=== PATIENT | male | born 2000 | race African-American/Black ===

== ENCOUNTER 2023-11-12 19:40 | Emergency (ER) | payer SELFPAY ==
[2023-11-12 19:46] VITALS: BP 114/48
[2023-11-12 23:41] VITALS: BP 108/68
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
[2023-11-13] VITALS: BP 118/63
[2023-11-13] MEDS: VALIUM 5 MG PO (00:20)
[2023-11-13] MEDS: TORADOL 30 MG IM (00:21)
--- NOTE | 2023-11-13 00:39 | EDRN ---
[place]. Pt states that his entire body hurts. Pt c/o bilateral neck pain, back pain, bilateral buttocks pain and leg pain. Pt has a redness across his upper back and healing scabbed scratches lower back. pt moves arms and legs with c/o pain.
--- NOTE | 2023-11-13 03:02 | ED.GENMED ---
History of Present Illness
General
Chief Complaint: Generalized Pain
Time Seen by Provider: 11/12/23 23:50
Travel History
Have you had any contact with someone who has COVID-19?: No
Do you have any symptoms of coronavirus? Fever > 100 degrees, chills, cough, shortness of breath, sore throat, loss of taste or smell, muscle aches, or headache?: No
Course
Orders/Labs/Results
Orders:
Orders
11/13/23 00:06
CT Cervical Spine W/o Iv Contr Urgent
Comment:
Reason For Exam: trauma
CT Head W/o Iv Contrast Urgent
Comment:
Reason For Exam: trauma pain
CT Lumbar Spine W/o Iv Contras Urgent
Comment:
Reason For Exam: trauma
Diazepam [Valium] 5 mg PO NOW STA
Ketorolac [Toradol] 30 mg IM NOW STA
CR Shoulder, Trauma - Left Urgent
Comment:
Reason For Exam: trauma
Vital Signs
Initial and Last Documented VS:
Initial Vital Signs
Temp Pulse Resp BP Pulse Ox
98.1 F 120 24 114/48 98
11/12/23 19:46 11/12/23 19:46 11/12/23 19:46 11/12/23 19:46 11/12/23 19:46
Last Documented Vital Signs
Temp Pulse Resp BP Pulse Ox
98.1 F 120 24 114/48 98
11/12/23 19:46 11/12/23 19:46 11/12/23 19:46 11/12/23 19:46 11/12/23 19:46
ED Attending Note
-
Portions of this chart may have been created with voice recognition software.� Occasional wrong word or��sound alike� substitutions may have occurred due to the inherent limitations of voice recognition software.
Discharge Plan
Departure
Patient Disposition: Home (Routine Discharge)
Date of Disposition: 11/13/23
Time of Disposition: 01:57
Patient with high blood pressure during this ER visit?: Yes
Discharge Problem:
Psoas muscle strain
Prescriptions:
New
oxycodone-acetaminophen [Percocet] 5-325 mg tablet
1 - 2 tab PO Q8H PRN (Reason: Pain) Qty: 14 0RF
Referrals:
NONE,* [Family Provider] -
Activity Restrictions/Additional Instructions:
The CAT scan of the brain and cervical spine shows no bleeding or fracture. The CAT scan of the lumbar spine shows no fracture however the radiologist did think that there may be some bruising/hematoma over the psoas muscles. I sent a prescription
for narcotic analgesia to the [facility] pharmacy in [place]. While on narcotic, I recommend taking something like kzas-hul-bzaitxa MiraLAX to help prevent constipation. I see no fracture at the left shoulder. Follow-up with your doctors. Return here
if worse.
Interventions
Interventions:
*Risk Screen - Suicide Last Done: 11/13/23 00:15
*General Assessment Last Done: 11/13/23 00:15
*Neglect/Abuse Screening Last Done: 11/13/23 00:15
ED- Fall Risk Assessment Last Done: 11/13/23 00:15
*ED COVID-19 Vaccine History Last Done: 11/13/23 00:15
Discharge Date and Time
Print Language: ARMENIAN
[2023-11-13] MEDS: PERCOCET 5/325 1 TABLET PO (03:08)
[2023-11-13 03:13] VITALS: BP 123/77
== END 2023-11-13 04:10 | disposition home or self-care (01) ==
LOC: EMR 19:40
PROVIDERS: EMERGENCY PHYSICIAN Emergency Medicine
DX: S39.012A Strain of muscle, fascia and tendon of lower back, initial encounter (principal); X50.1XXA Overexertion from prolonged static or awkward postures, initial encounter; Y09 Assault by unspecified means
CPT/HCPCS: 99284; 96372; 70450; 72125; 72131; 73030